=== PATIENT | male | born 1985 | race Caucasian/White ===

== ENCOUNTER 2021-10-07 12:46 | Emergency (ER) | payer SELFPAY ==
[~2021-10-07] VITALS: Ht 182.8 cm; Wt 107.4 kg
--- NOTE | 2021-10-07 13:06 | ED GU-Female ---
General Chief Complaint: - Reproductive Stated Complaint: TESTICLE SWELLING - FEVER Source: patient Exam Limitations: no limitations History of Present Illness Date Seen by Provider: Oct 07, 2021 Time Seen by Provider: 13:02 Initial Comments Patient is a 36-year-old male who presents ED with right testicle pain swelling and redness. Symptoms started yesterday. Started having pain with urination and frequent urination. Woke up this morning redness and swelling and pain to the right testicle and right groin. Concern for sexual transmitted infection. Denies of any nausea vomiting, diarrhea. Denies any trauma. Currently sexually active. Denies history of similar symptoms in the past. He is unsure if he is having any type of discharge. Denies of any penile lesions. Denies fever, chills, body aches, headache, dizziness, shortness of breath, cough Allergies and Home Medications Allergies Coded Allergies: No Known Drug Allergies (Unverified , 10/07/21) Patient Home Medication List Home Medication List Reviewed: Yes Levofloxacin (Levofloxacin) 500 Mg Tablet, 500 MG PO DAILY Prescribed by: SALVADOR RODRIGUEZ on 10/07/21 [id number] Review of Systems Review of Systems Constitutional: No chills, No diaphoresis, No malaise, No weakness EENTM: No blurred vision, No double vision, No hoarseness, No mouth pain, No mouth swelling Respiratory: No cough, No dyspnea on exertion, No orthopnea, No short of breath Cardiovascular: No chest pain, No edema Gastrointestinal: abdominal pain; No nausea, No vomiting Genitourinary: burning, discharge Musculoskeletal: No back pain, No joint pain Skin: change in color Psychiatric/Neurological: Denies Anxiety, Denies Depressed All Other Systemes Reviewed Negative Unless Noted: Yes Past Lgakxst-Rqxjne-Qlomtm Hx Patient Social History Tobacco Use?: Yes Tobacco type used: Cigarettes Smoking Status: Current Everyday Smoker Use of E-Cig and/or Vaping dev: No Substance use?: Yes Substance type: Marijuana Substance frequency: Daily Alcohol Use?: Yes Alcohol type: Beer, Hard Liquor, Wine Alcohol Frequency: Couple times a week Pt feels they are or have been: No Immunizations Up To Date Influenza Vaccine Up-to-Date: No; Not Current Physical Exam Vital Signs Vital Signs - First Documented 10/07/21 13:00 Temp 36.8 Pulse 94 Resp 18 B/P (MAP) 122/80 (94) Pulse Ox 97 O2 Delivery Room Air Capillary Refill : Height, Weight, BMI Height: '" Weight: lbs. oz. kg; BMI Method: General Appearance: WD/WN, no apparent distress HEENT: PERRL/EOMI, normal ENT inspection, TMs normal Neck: non-tender, full range of motion, supple, normal inspection Cardiovascular: regular rate, rhythm, no edema, no gallop, no JVD Respiratory: chest non-tender, lungs clear, normal breath sounds, no respiratory distress, no accessory muscle use Gastrointestinal: normal bowel sounds, non tender, soft, no organomegaly, no pulsatile mass Genital/Rectal: other (Right scrotum swelling testicle tenderness with erythema. Right groin lymphadenopathy inguinal. No palpable abscess or mass. 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, no motor/sensory deficits, alert, normal mood/affect, oriented x 3 Lymphatic: no adenopathy Progress/Results/Core Measures Suspected Sepsis SIRS Temperature: Pulse: Respiratory Rate: Laboratory Tests 10/07/21 13:08: White Blood Count 22.6H Blood Pressure / Mean: Laboratory Tests 10/07/21 13:08: Creatinine 0.82, Platelet Count 230, Total Bilirubin 0.7 Results/Orders Lab Results Laboratory Tests Test 10/07/21 13:08 10/07/21 13:50 Range/Units White Blood Count 22.6 H 4.3-11.0 10^3/uL Red Blood Count 5.36 4.30-5.52 10^6/uL Hemoglobin 16.0 13.3-17.7 g/dL Hematocrit 47 40-54 % Mean Corpuscular Volume 88 80-99 fL Mean Corpuscular Hemoglobin 30 25-34 pg Mean Corpuscular Hemoglobin Concent 34 32-36 g/dL Red Cell Distribution Width 12.7 10.0-14.5 % Platelet Count 230 130-400 10^3/uL Mean Platelet Volume 10.7 9.0-12.2 fL Immature Granulocyte % (Auto) 1 % Neutrophils (%) (Auto) 80 H 42-75 % Lymphocytes (%) (Auto) 12 12-44 % Monocytes (%) (Auto) 8 0-12 % Eosinophils (%) (Auto) 0 0-10 % Basophils (%) (Auto) 0 0-10 % Neutrophils # (Auto) 18.0 H 1.8-7.8 10^3/uL Lymphocytes # (Auto) 2.7 1.0-4.0 10^3/uL Monocytes # (Auto) 1.8 H 0.0-1.0 10^3/uL Eosinophils # (Auto) 0.0 0.0-0.3 10^3/uL Basophils # (Auto) 0.0 0.0-0.1 10^3/uL Immature Granulocyte # (Auto) 0.1 0.0-0.1 10^3/uL Neutrophils % (Manual) 76 % Lymphocytes % (Manual) 12 % Monocytes % (Manual) 9 % Eosinophils % (Manual) 0 % Basophils % (Manual) 0 % Band Neutrophils 3 % Blood Morphology Comment NORMAL Sodium Level 136 135-145 MMOL/L Potassium Level 3.7 3.6-5.0 MMOL/L Chloride Level 103 98-107 MMOL/L Carbon Dioxide Level 21 21-32 MMOL/L Anion Gap 12 5-14 MMOL/L Blood Urea Nitrogen 6 L 7-18 MG/DL Creatinine 0.82 0.60-1.30 MG/DL Estimat Glomerular Filtration Rate 117 BUN/Creatinine Ratio 7 Glucose Level 149 H 70-105 MG/DL Calcium Level 9.3 8.5-10.1 MG/DL Corrected Calcium 9.3 8.5-10.1 MG/DL Total Bilirubin 0.7 0.1-1.0 MG/DL Aspartate Amino Transf (AST/SGOT) 24 5-34 U/L Alanine Aminotransferase (ALT/SGPT) 31 0-55 U/L Alkaline Phosphatase 70 40-136 U/L Total Protein 7.7 6.4-8.2 GM/DL Albumin 4.0 3.2-4.5 GM/DL Urine Color YELLOW Urine Clarity CLEAR Urine pH 6.5 5-9 Urine Specific [place] 1.025 H 1.016-1.022 Urine Protein TRACE H NEGATIVE Urine Glucose (UA) NEGATIVE NEGATIVE Urine Ketones NEGATIVE NEGATIVE Urine Nitrite NEGATIVE NEGATIVE Urine Bilirubin 1+ H NEGATIVE Urine Urobilinogen 4.0 < = 1.0 MG/DL Urine Leukocyte Esterase 1+ H NEGATIVE Urine RBC (Auto) NEGATIVE NEGATIVE Urine RBC RARE /HPF Urine WBC 25-50 H /HPF Urine Squamous Epithelial Cells RARE /HPF Urine Crystals NONE /LPF Urine Bacteria TRACE /HPF Urine Casts NONE /LPF Urine Mucus SMALL H /LPF Urine Culture Indicated YES My Orders Orders - BARBARA MACARIO Ua Culture If Indicated (10/07/21 12:49) Chlamydia Trachomatis Urine (10/07/21 12:49) Neis Wilfred Dna Urine Test (10/07/21 12:49) Cbc With Automated Diff (10/07/21 13:01) Comprehensive Metabolic Panel (10/07/21 13:01) Us Scrotum (Testicle) [address] (10/07/21 13:01) Manual Differential (10/07/21 13:08) Ceftriaxone (Rocephin) (10/07/21 13:45) Lidocaine 1% Inj 20 Ml (Xylocaine 1% Inj (10/07/21 13:45) Urine Culture (10/07/21 13:50) Medications Given in ED Current Medications Medications Dose Ordered Sig/Tabatha Route Start Time Stop Time Status Last Admin Dose Admin Ceftriaxone Sodium 1,000 mg ONCE ONCE IM 10/07/21 13:45 10/07/21 13:46 DC 10/07/21 13:47 1,000 MG Lidocaine HCl 2.1 ml ONCE ONCE INJ 10/07/21 13:45 10/07/21 13:46 DC 10/07/21 13:48 2.1 ML Vital Signs/I&O 10/07/21 10/07/21 13:00 14:14 Temp 36.8 Pulse 94 87 Resp 18 18 B/P (MAP) 122/80 (94) 137/68 Pulse Ox 97 99 O2 Delivery Room Air Room Air Capillary Refill : Departure Communication (PCP) Patient is a 36-year-old male who presents ED with right scrotum swelling, tenderness and pain. Erythematous scrotum with testicle or tenderness. Concerning for epididymitis. Urinalysis positive for infection. He states he has been sexually active with one partner for several years not necessarily conc arely for sexual transmitted infection. Cultures are currently pending. He has no abdominal tenderness but does have right inguinal lymphadenopathy. Elevated white blood count 22. Patient was given a dose of Rocephin here 1 g compared to 500 mg for STDs secondary to him stating he may not have enough money to get antibiotics which would help cover enteric organism as well STD. To cover more enteric organisms and STD patient will be discharged with Levaquin 500 mg daily for 10 days. Recommend follow-up with primary care physician 2 to 3 days for reevaluation. Anti-inflammatories for pain. Recommend no sexual course until results. If test positive make sure all partners are treated. Ultrasound was negative for testicular mass, torsion Impression Primary Impression: Epididymitis Disposition: HOME, SELF-CARE Condition: Stable Departure-Patient Inst. Decision time for Depature: 14:04 Referrals: [facility],LOCAL PHYSICIAN (PCP) Primary Care Physician Patient Instructions: Epididymitis Scripts Levofloxacin (Levofloxacin) 500 Mg Tablet 500 MG PO DAILY for 10 Days, #10 TAB Prov: BARBARA MACARIO 10/07/21 BARBARA MACARIO Oct 07, 2021 13:06
[2021-10-07 13:21] LABS: BASOPHILS % (AUTO) 0 % (0-10); EOSINOPHILS % (AUTO) 0 % (0-10); HEMATOCRIT 47 % (40-54); LYMPHOCYTES # (AUTO) 2.7 10^3/uL (1.0-4.0); LYMPHOCYTES % (AUTO) 12 % (12-44); MEAN CORPUSCULAR HEMOGLOBIN 30 pg (25-34); MEAN CORPUSCULAR HGB CONC 34 g/dL (32-36); MEAN CORPUSCULAR VOLUME 88 fL (80-99); MEAN PLATELET VOLUME 10.7 fL (9.0-12.2); MONOCYTES # (AUTO) 1.8 10^3/uL (0.0-1.0); MONOCYTES % (AUTO) 8 % (0-12); NEUTROPHILS % (AUTO) 80 % (42-75); PLATELET COUNT 230 10^3/uL (130-400); WHITE BLOOD COUNT 22.6 10^3/uL (4.3-11.0)
[2021-10-07 13:31] LABS: POTASSIUM 3.7 MMOL/L (3.6-5.0)
[2021-10-07 13:32] LABS: CALCIUM 9.3 MG/DL (8.5-10.1)
[2021-10-07 13:33] LABS: TOTAL PROTEIN 7.7 GM/DL (6.4-8.2)
[2021-10-07 13:35] LABS: BILIRUBIN,TOTAL 0.7 MG/DL (0.1-1.0)
[2021-10-07 13:37] LABS: CREATININE SERUM 0.82 MG/DL (0.60-1.30)
[2021-10-07 13:41] LABS: BAND NEUTROPHILS 3 %; BASOPHILS % (MANUAL) 0 %; EOSINOPHILS % (MANUAL) 0 %; LYMPHOCYTES % (MANUAL) 12 %; MONOCYTES % (MANUAL) 9 %; NEUTROPHILS % (MANUAL) 76 %
[2021-10-07 13:42] LABS: RBC MORPH NORMAL
[2021-10-07] MEDS ORDERED: cefTRIAXone 1,000 MG VIAL IM ONE (13:45)
[2021-10-07] MEDS ORDERED: LIDOCAINE 1% INJ 20 ML VIAL INJ ONE (13:45)
[2021-10-07 13:55] LABS: CLARITY,URINE CLEAR; COLOR,URINE YELLOW; GLUCOSE, URINE (UA) NEGATIVE (NEGATIVE); KETONES,URINE NEGATIVE (NEGATIVE); LEUKOCYTE ESTERASE ,URINE 1+ (NEGATIVE); NITRITE,URINE NEGATIVE (NEGATIVE); PH,URINE 6.5 (5-9); PROTEIN,URINE TRACE (NEGATIVE)
--- NOTE | 2021-10-07 13:56 | Diagnostic Imaging Report ---
PROCEDURE: US Scrotum. TECHNIQUE: Multiple real-time grayscale images were obtained over the scrotum in various projections bilaterally. INDICATION: Right testicular pain. FINDINGS: Right testicle measures 3.9 x 2.4 x 3.5 cm and the left testicle measures 4.5 x 2.1 x 3.5 cm. Both testes show homogeneous echotexture. No discrete testicular mass is seen. There is blood flow to both testes. The right epididymis does appear to be enlarged and hypervascular, suggestive of epididymitis. Left epididymis is unremarkable. There is a small right hydrocele. No left-sided hydrocele is seen. No varicocele is detected. IMPRESSION: 1. No evidence of testicular mass or vascular compromise. 2. Findings suggestive of right-sided epididymitis. Dictated by: Dictated on workstation # [id number]
[2021-10-07 14:03] LABS: BACTERIA,URINE TRACE /HPF; BILIRUBIN,URINE 1+ (NEGATIVE); RBC,URINE RARE /HPF; SQUAMOUS EPITHELIAL CELL,UR RARE /HPF; WBC,URINE 25-50 /HPF
[2021-10-07] MEDS ORDERED: LEVO500T81 PO (14:07)
[2021-10-07 14:14] VITALS: BP 137/68
== END 2021-10-07 14:15 | disposition home or self-care (01) ==
LOC: EDUNIT# 12:46 → ER 12:49
DX: N45.1 Epididymitis (principal); D72.829 Elevated white blood cell count, unspecified; F17.210 Nicotine dependence, cigarettes, uncomplicated
CPT/HCPCS: 36415; 76870; 80053; 81000; 85007; 85027; 87088; 87491; 87591